=== PATIENT | female | born 1980 | race Hispanic/Latino ===

== ENCOUNTER 2016-04-07 05:27 | Outpatient (CLI) | payer MEDICAID, OTHER ==
[~2016-04-07] VITALS: Ht 154.9 cm; Wt 79.4 kg
[2016-04-07 05:35] VITALS: BP 129/80
--- NOTE | 2016-04-07 21:19 | Clinic Account Progress/Dx ---
Clinic Account Progress/Dx DIAGNOSIS: Diagnosis 39 weeks gestation Contractions Progress Note: Minimal cervical change less than 1 cm over stay and contractions at every 10- 15 minutes. JOSÉ ABAD MD Apr 07, 2016 21:19
[2016-04-08] MEDS ORDERED: IBUP-1773 PO (14:20)
== END 2016-04-07 07:00 | disposition home or self-care (01) ==
LOC: WSo 05:27 → LDRP 05:28 → WSo 07:00
PROVIDERS: ATTEND Family Medicine
DX: O47.1 False labor at or after 37 completed weeks of gestation (principal); Z3A.39 39 weeks gestation of pregnancy
CPT/HCPCS: 99213

== ENCOUNTER 2016-04-07 10:00 | Inpatient (IN) | payer MEDICAID, OTHER ==
[~2016-04-07] VITALS: Ht 154.9 cm; Wt 79.4 kg
[2016-04-07] VITALS (14 sets, daily range): BP systolic 95–127; BP diastolic 50–76
[2016-04-07] MEDS ORDERED: D5 LR IV SOLUTION 1,000 ML IV ONE (10:02)
--- OUTSIDE RECORDS SUMMARY | 2016-04-07 10:04 | XMS REPORT | Continuity of Care Document ---
Author Author [facility] Organization [facility] Address Unknown Phone Unavailable Care Team Providers Care Executive Pilot Name Role Phone DEUCE MONTES MD PCP Insurance Providers Payer Name Policy Number Subscriber Name Relationship Self Pay Rachael Dent 17 Self / Same As Patient Advance Directives Directive Response Recorded Date/Time Advance Directives No 04/07/16 6:03am Resuscitation Status Full Code 04/07/16 6:03am Problems No problem information available. Medications No known medications. Social History Social History Problem Response Recorded Date/Time Recent Foreign Travel No 04/07/2016 5:20am Smoking Status Never a Smoker 04/07/2016 6:01am Query Response Start Date Stop Date Smoking Status Never a Smoker Hospital Discharge Instructions No hospital discharge instructions. Plan of Care Discharge Date 04/07/16 7:00am Instructions/Education Provided OB OUTPATIENT DISCHARGE Prescriptions See Medication Section Functional Status No functional status results. Allergies, Adverse Reactions, Alerts Allergen Type Severity Reaction Status Last Updated Penicillins ([id number]) Allergy Unknown Active 04/07/16 Immunizations No immunization records. Vital Signs Acute Vital Signs Vital Response Date/Time Temperature (Fahrenheit) 98.3 degrees F (97.6 - 99.5) 04/07/2016 5:35am Temperature (Calculated Celsius) 36.66630 degrees C (36.4 - 37.5) 04/07/2016 5:35am Temperature Source Temporal 04/07/2016 5:35am Pulse Rate (adult) 131 bpm (60 - 90) 04/07/2016 5:35am Respiratory Rate 20 bpm (12 - 24) 04/07/2016 5:35am Blood Pressure 129/80 mm Hg 04/07/2016 5:35am Blood Pressure Mean 96 mm Hg 04/07/2016 5:35am Pain Numeric Pain Scale 5-Moderate Pain 04/07/2016 6:01am Height (Feet) 5 feet 04/07/2016 5:44am Height (Inches) 1.00 inches 04/07/2016 5:44am Height (Calculated Centimeters) 154.601337 cm 04/07/2016 5:44am Weight (Pounds) 175 pounds 04/07/2016 5:44am Weight (Ounces) 0.0 oz 04/07/2016 5:44am Weight (Calculated Grams) 64697.67 gm 04/07/2016 5:44am Weight (Calculated Kilograms) 79.982707 kilograms 04/07/2016 5:44am Calculated BMI 33.1 04/07/2016 5:44am Results No known relevant diagnostic tests, laboratory data and/or discharge summary. Procedures No known history of procedures. Encounters Encounter Location Arrival/Admit Date Discharge/Depart Date Attending Provider Departed Clinic [facility] 04/07/16 5:27am 04/07/16 7: 00am JOSÉ ABAD MD
[2016-04-07] MEDS ORDERED: OXYTOCIN/NORMAL SALINE 500 ML IV ONE (10:15)
[2016-04-07] MEDS ORDERED: MEPIVACAINE (CARBOCAINE) 2% 50 ML VIAL ONE (10:18)
--- NOTE | 2016-04-07 10:50 | History & Physical-OB ---
OB - Chief Complaint & HPI Date Date of Admission: Date of Admission: Apr 07, 2016 at 10:00 Chief Complaint/History OB-Reason for Admission/Chief: Onset of Labor Hx : 4 Hx Para: 4 Expected Date of Delivery: Apr 11, 2016 Gestational Age in Weeks: 39 Gestational Age in Days: 4 Admission Nurse Assessment Rev: Yes History of Labs GBS negative Allergies and Home Medications Allergies Coded Allergies: Penicillins (Unverified Allergy, Unknown, 04/07/16) Home Medications No Active Prescriptions or Reported Meds OB - History Hx of Present Care: Yes Ultrasounds: Normal mid trimester US Obstetrical Complications: None Medical Complications: None Patient Past Medical History no chronic medical problems OB - Admission Exam Physical Exam HEENT: Moist Membranes Heart: Rhythm Normal Lungs: Clear Abdomen: Gravid Extremities: Normal Cervical Dilatation: 9cm (on admission) Effacement: 100% Station: +1 Membranes: Ruptured Amniotic Fluid: Clear Heart Rate: 140's Accelerations: Accelerations Present Decelerations: Variable Decelerations Short Term Variability: Present Custodial Variability: Average (6-25) Contractions on Admission: < 5 Minutes Apart Intensity: Moderate OB - Assessment/Plan/Diagnosis Assessment Assessment: active labor (at 39w3d) Plan Plan: Other (eminent delivery) DEUCE MONTES MD Apr 07, 2016 10:50
[2016-04-07] MEDS ORDERED: D5 LR IV SOLUTION 1,000 ML IV SCH (10:53)
--- NOTE | 2016-04-07 10:53 | OB Labor & Delivery Record ---
L&D History Date of Service Date of Service: Apr 07, 2016 History Expected Date of Delivery: Apr 11, 2016 Gestational Age in Weeks: 39 Hx : 4 Hx Para: 4 Complications Events: Routine care Operative Indications (Cesarea: N/A-Vaginal Delivery Intrapartal Events: None, Precipitous Labor < 3 hrs L&D Stage1 Stage One Onset of Labor - Date: Apr 07, 2016 Onset of Labor - Time: 09:00 Monitors and Tracing Monitor Mode: External Monitor Accelerations: Uniform Monitor Decelerations: None Workday Manager Variability: Average (6-10) Short Term Variability: Present Presentation: Vertex Signs of Distress by FHT Signs of Distress no Rupture of Membranes Spontaneous Ruture of Membrane: Yes Amniotic Membrane Fluid Desc.: Clear L&D Stage2 Stage Two Stage II Date: Apr 07, 2016 Stage II Time: 10:22 Monitors and Tracing Monitor Mode: External Monitor Accelerations: Uniform Monitor Decelerations: Variable Mcc Variability: Average (6-10) Short Term Variability: Present Position: Left Occiput Anterior Presentation: Vertex Signs of Distress by FHT Signs of Distress no Cord Descript/Complications Cord Vessel Description: 3 Vessels Delivery Type Infant Delivery Method: Spontaneous Vaginal Episiotomy/Perineal Laceration Laceraction(s)/Extensions: Yes Episiotomy Description: Perineal Extension/lac, 1st degree Sutures Used: Vicryl Degree (describe repair) no episotomy but natural 1st degree lac Condition of Infant Delivery 1 minute Comment: 9 5 minute Comment: 9 Condition of Infant Condition of Infant: Living Exam: No Observed Abnormalities Resuscitation Resuscitation: N/A - Spontaneous Resp L&D Stage3 Stage Three Stage III Date: Apr 07, 2016 Stage III Time: 10:27 Pictocin Pitocin ml/hr: 125 Placenta Delivery Placenta Delivery: Spontaneous Delivery Summary Summary Vaginal blood loss >500ml: No 150cc Condition of Delivery Examined: Cervix Examined Post Hemorrhage: No Intervention Required none DEUCE MONTES MD Apr 07, 2016 10:53
[2016-04-07] MEDS ORDERED: OXYTOCIN/NORMAL SALINE 500 ML IV SCH ×2 (10:55→13:30)
[2016-04-07] MEDS ORDERED: BENZOCAINE/MENTHOL (DERMOPLAST) 56 ML CAN TP PRN (11:00)
[2016-04-07] MEDS ORDERED: HYDROcodone/APAP 5 MG/325 MG (LORTAB) TAB PO PRN (11:00)
[2016-04-07] MEDS ORDERED: WITCH HAZEL(TUCKS) 40 EA JAR TOP PRN (11:00)
[2016-04-07] MEDS ORDERED: TETANUS,DIPTH,PERTUSS P/F (BOOSTRIX) 0.5 ML VIAL IM ONE (11:00)
[2016-04-07] MEDS ORDERED: MEASLES,MUMPS,RUBELLA 1 EA INJ SQ ONE (11:00)
[2016-04-07 11:31] LABS: BASOPHILS % (AUTO) 0 % (0-10); EOSINOPHILS % (AUTO) 0 % (0-10); LYMPHOCYTES # (AUTO) 0.8 X 10^3 (1.0-4.0); LYMPHOCYTES % (AUTO) 7 % (12-44); MEAN CORPUSCULAR HEMOGLOBIN 32 PG (25-34); MEAN CORPUSCULAR HGB CONC 34 G/DL (32-36); MEAN CORPUSCULAR VOLUME 93 FL (80-99); MEAN PLATELET VOLUME 10.5 FL (7.4-10.4); MONOCYTES # (AUTO) 0.4 X 10^3 (0.0-1.0); MONOCYTES % (AUTO) 4 % (0-12); NEUTROPHILS # (AUTO) 9.6 X 10^3 (1.8-7.8); NEUTROPHILS % (AUTO) 89 % (42-75); PLATELET COUNT 225 10^3/uL (130-400); RED BLOOD COUNT 4.01 10^6/uL (4.35-5.85); RED CELL DISTRIBUTION WIDTH 13.5 % (10.0-14.5); WHITE BLOOD COUNT 10.8 10^3/uL (4.3-11.0)
[2016-04-07 11:46] LABS: BAND NEUTROPHILS 8 %; LYMPHOCYTES % (MANUAL) 6 %; NEUTROPHILS % (MANUAL) 86 %
[2016-04-07] MEDS: IBUPROFEN 600 MG (MOTRIN) TAB PO SCH ×2 (13:35→20:14)
[2016-04-07] MEDS ORDERED: CATHETER FLUSH 10 ML SYR IV SCH (14:00)
[2016-04-08 01:45] VITALS: BP 114/69
[2016-04-08] MEDS: IBUPROFEN 600 MG (MOTRIN) TAB PO SCH ×2 (01:47→08:19)
[2016-04-08 05:09] LABS: BASOPHILS % (AUTO) 0 % (0-10); EOSINOPHILS # (AUTO) 0.1 10^3/uL (0.0-0.3); EOSINOPHILS % (AUTO) 1 % (0-10); LYMPHOCYTES # (AUTO) 2.1 X 10^3 (1.0-4.0); LYMPHOCYTES % (AUTO) 19 % (12-44); MEAN CORPUSCULAR HEMOGLOBIN 32 PG (25-34); MEAN CORPUSCULAR HGB CONC 34 G/DL (32-36); MEAN CORPUSCULAR VOLUME 94 FL (80-99); MEAN PLATELET VOLUME 10.3 FL (7.4-10.4); MONOCYTES # (AUTO) 0.6 X 10^3 (0.0-1.0); MONOCYTES % (AUTO) 6 % (0-12); NEUTROPHILS # (AUTO) 8.1 X 10^3 (1.8-7.8); NEUTROPHILS % (AUTO) 74 % (42-75); PLATELET COUNT 204 10^3/uL (130-400); RED BLOOD COUNT 3.77 10^6/uL (4.35-5.85); RED CELL DISTRIBUTION WIDTH 13.6 % (10.0-14.5)
--- NOTE | 2016-04-08 07:29 | Progress Note (SOAP) ---
Subjective Subjective/Events-last exam No major complaints Objective Exam Vital Signs Date Time Temp Pulse Resp B/P Pulse Ox O2 Delivery O2 Flow Rate FiO2 04/08/16 01:45 97.4 79 18 114/69 97 Room Air 04/07/16 20:14 98.1 87 18 104/69 95 Room Air 04/07/16 17:50 98.0 73 18 106/68 98 Room Air 04/07/16 16:00 98.4 91 18 106/58 96 Room Air 04/07/16 13:35 99.0 78 18 115/69 96 Room Air 04/07/16 12:45 99.0 90 18 115/72 96 Room Air 04/07/16 12:25 88 18 97/50 Room Air 04/07/16 12:10 86 18 95/52 Room Air 04/07/16 11:55 98.6 99 18 96/54 Room Air 04/07/16 11:40 99 18 110/76 Room Air 04/07/16 11:24 92 18 106/64 Room Air 04/07/16 11:08 85 18 108/59 Room Air 04/07/16 10:54 89 18 112/55 Room Air 04/07/16 10:40 93 18 116/59 Room Air 04/07/16 10:33 97.6 93 18 127/57 96 Room Air I & O 04/08/16 07:00 Intake Total 800 ml Balance 800 ml Capillary Refill : General Appearance: No Apparent Distress Respiratory: Lungs Clear Cardiovascular: Regular Rate, Rhythm Gastrointestinal: soft Results Lab Laboratory Tests 04/07/16 11:15: Band Neutrophils 8, Basophils # (Auto) 0.0, Basophils (%) (Auto) 0, Blood Morphology Comment NORMAL, Eosinophils # (Auto) 0.0, Eosinophils (%) (Auto) 0, Hematocrit 37, Hemoglobin 12.8, Lymphocytes # (Auto) 0.8L, Lymphocytes % (Manual ) 6, Lymphocytes (%) (Auto) 7L, Mean Corpuscular Hemoglobin 32, Mean Corpuscular Hemoglobin Concent 34, Mean Corpuscular Volume 93, Mean Platelet Volume 10.5H, Monocytes # (Auto) 0.4, Monocytes (%) (Auto) 4, Neutrophils # ( Auto) 9.6H, Neutrophils % (Manual) 86, Neutrophils (%) (Auto) 89H, Platelet Count 225, Red Blood Count 4.01L, Red Cell Distribution Width 13.5, Toxic Granulation 1+, White Blood Count 10.8 04/08/16 05:00: Basophils # (Auto) 0.0, Basophils (%) (Auto) 0, Eosinophils # (Auto) 0.1, Eosinophils (%) (Auto) 1, Hematocrit 35, Hemoglobin 12.0, Lymphocytes # (Auto) 2.1, Lymphocytes (%) (Auto) 19, Mean Corpuscular Hemoglobin 32, Mean Corpuscular Hemoglobin Concent 34, Mean Corpuscular Volume 94, Mean Platelet Volume 10.3, Monocytes # (Auto) 0.6, Monocytes (%) (Auto) 6, Neutrophils # (Auto ) 8.1H, Neutrophils (%) (Auto) 74, Platelet Count 204, Red Blood Count 3.77L, Red Cell Distribution Width 13.6, White Blood Count 11.0 Assessment/Plan Assessment/Plan Assess & Plan/Chief Complaint 1. S/P day 1 with Delivery at 39w3d gestation -routine PP care orders -Hg stable Diagnosis/Problems: Clinical Quality Measures DVT/VTE Risk/Contraindication: Risk Factor Score Per Nursin RFS Level Per Nursing on Admit: 1=Low/No VTE PPX DEUCE MONTES MD Apr 08, 2016 07:29
[2016-04-08 08:00] VITALS: BP 118/64
[2016-04-08] MEDS ORDERED: IBUP-1773 PO (14:20)
--- NOTE | 2016-04-10 15:46 | Physician Query-Final Dx ---
ARIA MEYER 04/10/16 1546: Final Diagnosis Give Final Diagnosis Please give Final Diagnosis DEUCE MONTES MD 04/15/16 0736: Final Diagnosis Give Final Diagnosis 1. IUP at 39 weeks gestation, Labor ARIA MEYER Apr 10, 2016 15:46 DEUCE MONTES MD Apr 15, 2016 07:36
== END 2016-04-08 14:45 | disposition home or self-care (01) | DRG 775 ==
LOC: LDRP 10:00
PROVIDERS: ADMIT Family Medicine; ATTEND Family Medicine
PROC: 10E0XZZ Delivery of Products of Conception, External Approach (ICD-10-PCS; principal; 2016-04-07)
PROC: 0HQ9XZZ Repair Perineum Skin, External Approach (ICD-10-PCS; 2016-04-07)
DX: O62.3 Precipitate labor (principal); O70.0 First degree perineal laceration during delivery; O09.523 Supervision of elderly multigravida, third trimester; Z3A.39 39 weeks gestation of pregnancy; Z37.0 Single live birth
CPT/HCPCS: 36415; 85007; 85025; 85027; 86850; 86900; 86901; 99212

== ENCOUNTER → 2017-01-06 | Outpatient (CLI) | payer OTHER ==
[~2017-01-06] MED LIST: IBUP-1773 PO
--- NOTE | 2017-01-06 10:03 | Diagnostic Imaging Report ---
First trimester OB ultrasound. INDICATION: Dating. FINDINGS: There is a normal-appearing single intrauterine . An embryo is seen with cardiac activity at 176 beats per minute. The crown-rump length is at 11 weeks and 3 days. GUANAKITO is 07/25/17. There is a small subchorionic hemorrhage measuring 3.2 x 0.9 x 1.8 CM. The ovaries are not seen, probably obscured by bowel gas. IMPRESSION: Live single intrauterine . Small subchorionic hemorrhage. Dictated by: Dictated on workstation # [id number]
== END ==
LOC: RAD 09:20
PROVIDERS: ATTEND Family Medicine
DX: Z36.87 Encounter for antenatal screening for uncertain dates (principal); O20.8 Other hemorrhage in early pregnancy; Z3A.11 11 weeks gestation of pregnancy
CPT/HCPCS: 76801

== ENCOUNTER → 2017-03-14 | Outpatient (CLI) | payer SELFPAY ==
--- NOTE | 2017-03-14 16:30 | Diagnostic Imaging Report ---
INDICATION: anatomy survey. TECHNIQUE: Multiple real-time grayscale images were obtained over the gravid uterus. COMPARISON: None FINDINGS: There is a single live intrauterine in transverse lie. The placenta is anteriorly located, and the inferior margin is within 1.5 cm of the internal cervical os indicative of marginal placenta. No placenta previa is noted. The amount of amniotic fluid appears visually appropriate. biometric data is supplied below. anatomy survey was performed, and the following structures are visualized and normal: Four-chamber heart, stomach, umbilical cord insertion, urinary bladder, kidneys, cerebellum, cisterna magna, and cerebral ventricles. The spine was poorly visualized due to positioning. Biometrical measurements are as follows: Biparietal 5.20 cm, age 21 weeks 6 days. Head circumference 19.09 cm, age 21 weeks 3 days. Abdominal circumference 15.21 cm, age 20 weeks 3 days. Femur length 3.11 cm, age 19 weeks 5 days. Sonographic estimate age: 20 weeks 6 days. Sonographic estimated date of delivery: 07-26-17. Estimated Weight: 342 gm (+/- 50 gm). LMP percentile: 17%. heart rate: 144 beats per minute. number: 1 of 1. IMPRESSION: 1. Single live intrauterine with a normal anatomy survey with the exception of suboptimal visualization of the spine. Recommend short-term followup ultrasound for reassessment. 2. Marginal placenta. No evidence of previa. Attention on follow-up ultrasound is recommended. Dictated by: Dictated on workstation # [id number]
== END ==
LOC: RAD 12:29
PROVIDERS: ATTEND Family Medicine
DX: Z36.89 Encounter for other specified antenatal screening (principal); Z3A.20 20 weeks gestation of pregnancy
CPT/HCPCS: 76805